=== PATIENT | male | born 1980 | race Caucasian/White ===

== ENCOUNTER 2019-05-20 09:10 | Emergency (ER) | payer MEDICAID, SELFPAY ==
[2019-05-20] VITALS (40 sets, daily range): BP systolic 105–144; BP diastolic 59–86; PULSE 66–90; RESP 11–34; TEMP 37.4; O2SAT 96–100
--- NOTE | 2019-05-20 09:21 | ED.GENADUL_ITS ---
Discharge Plan Disposition Patient Disposition: HOME Discharge Details Chief Complaint: FlankPain Primary Care Provider: None,None ED Provider: Keith Wells Home Meds and New Rx's Prescriptions: New lidocaine 5 % adhesive patch,medicated 1 patch TP DAILY PRN (Reason: pain) Qty: 15 RF: 0 Continued methadone 10 mg/mL Concentrate 60 mg PO DAILY RF: 0 Discharge Data Discharge Date/Time-TO BE ENTERED AT DEPARTURE: 05/20/19 12:50 Medical Decision Making <Keith Wells NP - Last Filed: 05/24/19 08:16> Chief complaint of back pain. Patient states he took some friend's Vyvanse 2 tablets last night and fell asleep on the couch. When he woke up this morning he had back pain. He did state that he may have bit his tongue as it feels slightly swollen. Patient is concerned he may have had a seizure. Patient denies any seizure disorder, states that he is never had a witnessed seizure, denies any headache or neurological symptoms. With further questioning he just thinks that this is why he has back pain but has no specific other reason to think he had a seizure. Patient states he is mainly here for his discomfort of his right flank and back. Physical exam shows no neurological findings, slight ecchymosis to the right lateral aspect of the tongue but no laceration or other abnormalities noted within the oral cavity, cardiac and respiratory exams unremarkable, patient does have what appears to be soft tissue tenderness to the mid thoracic spine on the right posterior ribs. Patient has no other focal findings. Given the patient has no seizure history and that he states he is more looking for a reason why he would have back pain I do not feel that patient had seizure as he states that he just woke up with back pain at his normal time along with him not having any other seizure history. Patient does have soft tissue tenderness and paraspinal tenderness but does seem significant over the ribs so given no known mechanism of injury plan to do radiological imaging but suspect back pain is more secondary to him sleeping on the couch. Plan to do labs and radiological imaging. Pending results patient given Toradol lidocaine patch and IV fluids Review of radiological imaging shows no acute findings, labs reveal nonspecific leukocytosis, elevated anion gap and slightly decreased potassium, urine does show some ketones in the urine and urine drug screen positive for methadone and THC. Patient reassessed and states significant improvement of back discomfort. I feel that patient more likely has musculoskeletal back pain and that he should continue on NSAID therapy, was prescribed lidocaine patches, and recommended to follow-up with primary care provider. After discussion of diagnosis and plan of care patient is no further needs, questions, or concerns and states clear understanding to return to the emergency department for any worsening symptoms. <Jamshid Dao MD - Last Filed: 05/20/19 09:51> ECG Data Attestation: I personally reviewed and interpreted this ECG (s) as follows: Prior ECG tracings: not available for review Interpretation: sinus rhythm, rate of 78, qtc 437 HPI <Keith Wells NP - Last Filed: 05/24/19 08:16> General Mode of arrival: ambulatory . Date/Time Provider Initiated Documentation: 05/20/19 09:11 . Limitations to Documentation: no limitations . Information obtained by: patient . History of Present Illness 38 year old M presents to the emergency department with the chief complaint of Back pain, described as severe, with intensity rated at 9. Quality is described as sharp, and is localized to the back. Patient started experiencing this hour(s) (3) and it has been constant. No relieving factors improve symptom(s), Movement worsens symptoms . Patient did receive the following treatments prior to arrival, none Related Data Home Medications Medication Instructions Recorded Confirmed lidocaine 1 patch TP DAILY PRN #15 each 05/20/19 methadone 60 mg PO DAILY 05/20/19 05/20/19 Previous Rx's Medication Instructions Recorded lidocaine 1 patch TP DAILY PRN #15 each 05/20/19 Allergies Allergy/AdvReac Type Severity Reaction Status Date / Time sertraline [From Zoloft] Allergy Unverified 05/20/19 09:17 General Stated Complaint: FlankPain DEVEN: 3 Review of Systems <Keith Wells NP - Last Filed: 05/24/19 08:16> Constitutional Denies chills, Denies fever(s), Denies headache(s) and Denies weakness Eyes Denies change in vision ENT Denies headache(s), Denies mouth pain and Reports tongue swelling Cardiovascular Denies chest pain, Denies syncope and Denies dyspnea Respiratory Denies cough and Denies dyspnea Musculoskeletal Reports back pain, Denies numbness and Denies tingling Neurologic Denies syncope, Denies headache(s), Denies focal weakness, Denies memory loss, D enies numbness, Denies radicular pain, Denies tingling, Denies paresthesias and Denies weakness Psychiatric Denies memory loss Allergic/Immunologic Reports tongue swelling PFSH <Keith Wells NP - Last Filed: 05/24/19 08:16> Social History Smoking/Tobacco Use Status: Current every day Tobacco Type: cigarettes Alcohol Intake: never Drug use: Daily Substance use type: marijuana Do you feel safe at home: Yes Do you feel safe in your relationship?: Yes Exam <Keith Wells NP - Last Filed: 05/24/19 08:16> Const General: cooperative and disheveled HENMT Head: normal to inspection Ears: hearing grossly normal bilaterally and TM's normal bilaterally General nose exam: external nose normal Face and sinus: normal facial exam and face symmetric Mouth: lip normal, oropharynx normal, moist mucous membranes, no audible dysphonia, no drooling and tongue abnormal (mild to R lateral ) ecchymotic Throat: posterior oropharynx normal, tonsils normal and uvula midline Eyes General: appearance normal, both eyes and all related structures Pupils: PERRL EOM: EOM intact bilaterally Chest Chest: No rash Other: localized rib tenderness with lateral rib compression right posterior ribs Cardio Rate: regular rate Rhythm: regular rhythm Heart Sounds: S1 normal and S2 normal Pulses: dorsalis pedis pulses present Back/Spine/Pelvis Cervical Spine: normal cervical lordosis and cervical ROM normal Thoracic/Lumbar Spine: thoracic and lumbar spine normal to inspection, pain with thoraco-lumbar ROM, paraspinal tenderness, No scoliosis and No lumbar spinal tenderness Skin General skin exam: no rashes or lesions noted Neuro General: alert, awake, oriented x3, gait normal, tone normal, moves all extremities, no meningeal signs, no focal motor deficits, CN's II-XI intact bilaterally, deep tendon reflexes 2+ bilaterally, not confused and not obtunded Cranial Nerves: no nystagmus, hearing normal and able to elevate shoulders bilaterally Motor: muscle tone normal throughout and strength 5/5 throughout Sensory Exam: no sensory deficits noted and normal double simultaneous stimulation Extrem General: normal to inspection Course <Keith Wells, [employer] - Last Filed: 05/24/19 08:16> Vital Signs Temperature 37.4 C 05/20/19 09:13 Pulse 79 05/20/19 09:13 Respiratory Rate 16 05/20/19 09:13 Blood Pressure 144/86 H 05/20/19 09:13 Pulse Oximetry 100 05/20/19 09:13 Temperature 37.4 C 05/20/19 09:13 Temperature Source Temporal Artery Scan 05/20/19 09:13 Pulse 79 05/20/19 09:13 Respiratory Rate 16 05/20/19 09:13 Respiratory Effort Non-Labored 05/20/19 09:15 Blood Pressure 144/86 H 05/20/19 09:13 Blood Pressure Position Sitting 05/20/19 09:13 Pulse Oximetry 100 05/20/19 09:13 Oxygen Delivery Method Room Air 05/20/19 09:13 Oxygen Flow Rate 0 05/20/19 09:13 Pain Level 10 05/20/19 09:13
--- NOTE | 2019-05-20 09:53 | W.ED.GENAD ---
Discharge Plan Disposition Patient Disposition: HOME Discharge Details Chief Complaint: FlankPain Primary Care Provider: None,None ED Provider: Keith Wells Home Meds and New Rx's Prescriptions: New lidocaine 5 % adhesive patch,medicated 1 patch TP DAILY PRN (Reason: pain) Qty: 15 RF: 0 Continued methadone 10 mg/mL Concentrate 60 mg PO DAILY RF: 0 Discharge Data Discharge Date/Time-TO BE ENTERED AT DEPARTURE: 05/20/19 12:50 HPI General Mode of arrival: ambulatory. Date/Time Provider Initiated Documentation: 05/20/19 09:11. Limitations to Documentation: no limitations. Information obtained by: patient and RN notes reviewed. History of Present Illness 38 year old M presents to the emergency department with the chief complaint of back pain, described as severe, with intensity rated at 10. Quality is described as aching and sharp, and is localized to the back and right. Patient started experiencing this hour(s) (8) and it has been constant. No relieving factors improve symptom(s), Patient notes no other symptoms.. Patient did receive the following treatments prior to arrival, none Related Data Home Medications Medication Instructions Recorded Confirmed lidocaine 1 patch TP DAILY PRN #15 each 05/20/19 methadone 60 mg PO DAILY 05/20/19 05/20/19 Previous Rx's Medication Instructions Recorded lidocaine 1 patch TP DAILY PRN #15 each 05/20/19 Allergies Allergy/AdvReac Type Severity Reaction Status Date / Time sertraline [From Zoloft] Allergy Unverified 05/20/19 09:17 General Stated Complaint: FlankPain EDVEN: 3 Review of Systems Review of Systems All systems reviewed & are unremarkable except as noted in HPI and below Constitutional Denies headache(s) Eyes Reports as per HPI and Reports system reviewed and no additional complaints, except as docu ENT Reports system reviewed and no additional complaints, except as docu, Denies headache(s) and Denies mouth pain Comments: tongue swelling Cardiovascular Reports system reviewed and no additional complaints, except as docu Respiratory Reports system reviewed and no additional complaints, except as docu Musculoskeletal Reports system reviewed and no additional complaints, except as docu, Reports abnormal gait (due to discomfort), Reports back pain (R sided thoracic), Denies deformity, Reports limited range of motion (due to discomfort), Denies muscle weakness, Denies numbness, Denies radiating pain into limb and Denies tingling Neurologic Reports system reviewed and no additional complaints, except as docu, Denies abnormal speech, Reports abnormal gait (due to discomfort), Denies headache(s), Denies numbness and Denies tingling [facility] Social History Smoking/Tobacco Use Status: Current every day Tobacco Type: cigarettes Alcohol Intake: never Drug use: Daily Substance use type: marijuana Do you feel safe at home: Yes Do you feel safe in your relationship?: Yes Exam Const General: cooperative, no acute distress and disheveled HENMT Head: normal to inspection Ears: hearing grossly normal bilaterally, external ears normal and TM's normal bilaterally General nose exam: external nose normal Face and sinus: normal facial exam and face symmetric Mouth: oral mucosae normal, lip normal, oropharynx normal, moist mucous membranes and tongue abnormal (mild to L lateral edge) ecchymotic Throat: posterior oropharynx normal, tonsils normal and uvula midline Eyes General: appearance normal, both eyes and all related structures Eyelids: eyelids normal Pupils: PERRL EOM: EOM intact bilaterally Resp Effort & Inspection: normal respiratory effort and able to speak in complete sentences Cardio Rate: regular rate Rhythm: regular rhythm Heart Sounds: S1 normal and S2 normal Pulses: dorsalis pedis pulses present Back/Spine/Pelvis Cervical Spine: normal cervical lordosis and cervical ROM normal Thoracic/Lumbar Spine: thoracic and lumbar spine normal to inspection Other: Lateral rib compression elicited R posterior thoracic rib pain Skin General skin exam: no rashes or lesions noted Trauma: no lacerations or abrasions Neuro General: deep tendon reflexes 2+ bilaterally Cranial Nerves: PERRL, EOM intact bilaterally, no nystagmus, hearing normal and able to elevate shoulders bilaterally Cognition: normal cognition Speech: speech normal Motor: muscle tone normal throughout and strength 5/5 throughout Sensory Exam: no sensory deficits noted and normal double simultaneous stimulation Course Vital Signs Pulse 75 05/20/19 09:06 Respiratory Rate 22 05/20/19 09:06 Blood Pressure 144/86 H 05/20/19 09:06 Pulse Oximetry 100 05/20/19 09:06 Temperature 37.4 C 05/20/19 09:13 Temperature Source Temporal Artery Scan 05/20/19 09:13 Pulse 78 05/20/19 09:34 Pulse 75 05/20/19 09:34 Respiratory Rate 14 05/20/19 09:34 Respiratory Effort Non-Labored 05/20/19 09:15 Blood Pressure 111/75 05/20/19 09:34 Blood Pressure Mean 84 05/20/19 09:34 Blood Pressure Position Sitting 05/20/19 09:13 Pulse Oximetry 99 05/20/19 09:34 Oxygen Delivery Method Room Air 05/20/19 09:13 Oxygen Flow Rate 0 05/20/19 09:13 Pain Level 10 05/20/19 09:32
[2019-05-20] MEDS: Ketorolac 30 MG/ML VIAL IVP (09:59)
[2019-05-20] MEDS: Lidocaine 5% Patch 1 PATCH TP (10:00)
--- NOTE | 2019-05-20 10:02 | ED.GENADUL_ITS ---
Discharge Plan Disposition Patient Disposition: HOME Discharge Details Chief Complaint: FlankPain Primary Care Provider: None,None ED Provider: Keith Wells Home Meds and New Rx's Prescriptions: New lidocaine 5 % adhesive patch,medicated 1 patch TP DAILY PRN (Reason: pain) Qty: 15 RF: 0 Continued methadone 10 mg/mL Concentrate 60 mg PO DAILY RF: 0 Discharge Data Discharge Date/Time-TO BE ENTERED AT DEPARTURE: 05/20/19 12:50 HPI General Mode of arrival: ambulatory . Date/Time Provider Initiated Documentation: 05/20/19 09:11 . Limitations to Documentation: no limitations . Information obtained by: patient and RN notes reviewed . History of Present Illness 38 year old M presents to the emergency department with the chief complaint of back pain, described as severe, with intensity rated at 10. Quality is described as aching and sharp, and is localized to the back and right. Patient started experiencing this hour(s) (8) and it has been constant. No relieving factors improve symptom(s), Patient notes no other symptoms.. Patient did receive the following treatments prior to arrival, none Related Data Home Medications Medication Instructions Recorded Confirmed lidocaine 1 patch TP DAILY PRN #15 each 05/20/19 methadone 60 mg PO DAILY 05/20/19 05/20/19 Previous Rx's Medication Instructions Recorded lidocaine 1 patch TP DAILY PRN #15 each 05/20/19 Allergies Allergy/AdvReac Type Severity Reaction Status Date / Time sertraline [From Zoloft] Allergy Unverified 05/20/19 09:17 General Stated Complaint: FlankPain DEVEN: 3 Review of Systems Review of Systems All systems reviewed & are unremarkable except as noted in HPI and below Constitutional Denies headache(s) Eyes Reports as per HPI and Reports system reviewed and no additional complaints, except as docu ENT Reports system reviewed and no additional complaints, except as docu, Denies headache(s) and Denies mouth pain Comments: tongue swelling Cardiovascular Reports system reviewed and no additional complaints, except as docu Respiratory Reports system reviewed and no additional complaints, except as docu Musculoskeletal Reports system reviewed and no additional complaints, except as docu, Reports abnormal gait (due to discomfort), Reports back pain (R sided thoracic), Denies deformity, Reports limited range of motion (due to discomfort), Denies muscle weakness, Denies numbness, Denies radiating pain into limb and Denies tingling Neurologic Reports system reviewed and no additional complaints, except as docu, Denies abnormal speech, Reports abnormal gait (due to discomfort), Denies headache(s), Denies numbness and Denies tingling [facility] Social History Smoking/Tobacco Use Status: Current every day Tobacco Type: cigarettes Alcohol Intake: never Drug use: Daily Substance use type: marijuana Do you feel safe at home: Yes Do you feel safe in your relationship?: Yes Exam Const General: cooperative, no acute distress and disheveled HENMT Head: normal to inspection Ears: hearing grossly normal bilaterally, external ears normal and TM's normal bilaterally General nose exam: external nose normal Face and sinus: normal facial exam and face symmetric Mouth: oral mucosae normal, lip normal, oropharynx normal, moist mucous membranes and tongue abnormal (mild to L lateral edge) ecchymotic Throat: posterior oropharynx normal, tonsils normal and uvula midline Eyes General: appearance normal, both eyes and all related structures Eyelids: eyelids normal Pupils: PERRL EOM: EOM intact bilaterally Resp Effort & Inspection: normal respiratory effort and able to speak in complete sentences Cardio Rate: regular rate Rhythm: regular rhythm Heart Sounds: S1 normal and S2 normal Pulses: dorsalis pedis pulses present Back/Spine/Pelvis Cervical Spine: normal cervical lordosis and cervical ROM normal Thoracic/Lumbar Spine: thoracic and lumbar spine normal to inspection Other: Lateral rib compression elicited R posterior thoracic rib pain Skin General skin exam: no rashes or lesions noted Trauma: no lacerations or abrasions Neuro General: deep tendon reflexes 2+ bilaterally Cranial Nerves: PERRL, EOM intact bilaterally, no nystagmus, hearing normal and able to elevate shoulders bilaterally Cognition: normal cognition Speech: speech normal Motor: muscle tone normal throughout and strength 5/5 throughout Sensory Exam: no sensory deficits noted and normal double simultaneous stimulation Course Vital Signs Pulse 75 05/20/19 09:06 Respiratory Rate 22 05/20/19 09:06 Blood Pressure 144/86 H 05/20/19 09:06 Pulse Oximetry 100 05/20/19 09:06 Temperature 37.4 C 05/20/19 09:13 Temperature Source Temporal Artery Scan 05/20/19 09:13 Pulse 78 05/20/19 09:34 Pulse 75 05/20/19 09:34 Respiratory Rate 14 05/20/19 09:34 Respiratory Effort Non-Labored 05/20/19 09:15 Blood Pressure 111/75 05/20/19 09:34 Blood Pressure Mean 84 05/20/19 09:34 Blood Pressure Position Sitting 05/20/19 09:13 Pulse Oximetry 99 05/20/19 09:34 Oxygen Delivery Method Room Air 05/20/19 09:13 Oxygen Flow Rate 0 05/20/19 09:13 Pain Level 10 05/20/19 09:32
[2019-05-20 10:12] LABS: Absolute Basophil Count 0.04 k/cumm (0.0-0.2); Absolute Eosinophil Count 0.03 k/cumm (0.0-0.7); Absolute Lymphocyte Count 1.25 k/cumm (1.2-3.4); Absolute Monocyte Count 0.98 k/cumm (0.11-0.7); Absolute Neutrophil Count 12.43 k/cumm (1.2-6.7); Basophils % 0.3; Eosinophils % 0.2; HCT 46.9 % (40.0-50.0); Immature Grans % 0.7; Lymphocytes % 8.4; Mean Corp. HGB Concentration 34.1 g/dL (32.0-36.0); Mean Corpuscular Hemoglobin 27.2 pg (27.0-33.0); Mean Corpuscular Volume 79.6 fL (80-95); Mean Platelet Volume 10.5 fL (8.0-11.0); Monocytes % 6.6; Neutrophils % 83.8; Platelet Count 336 x1000/uL (130-400); RBC 5.89 m/cumm (4.50-6.00); White Blood Cell Count 14.83 k/cumm (4.4-10.8)
--- NOTE | 2019-05-20 10:25 | DI.RAD_ITS ---
SYMPTOM/DIAGNOSIS: RIGHT POSTERIOR RIB PAIN PA AND LATERAL CHEST: There are no prior comparison exams. The cardiac and mediastinal contours have a normal appearance. The lungs are well inflated and clear. No pneumothorax, infiltrate or effusion is seen. There is mild anterior wedging of the mid thoracic vertebral bodies IMPRESSION: Mild thoracic compression fractures, likely old RIGHT RIBS: No fracture or pneumothorax is seen. The shoulder and humerus are unremarkable as visualized. IMPRESSION: Negative right ribs.
[2019-05-20 10:26] LABS: ALT 41 U/L (12-78); AST 28 U/L (15-37); Albumin 4.4 g/dL (3.4-5.0); Alkaline Phosphatase 94 U/L (46-116); Anion Gap 14.3 mmol/L (3-11); BUN 17 mg/dL (7-18); Bilirubin, Total 0.5 mg/dL (0.2-1.0); CO2 26.7 mmol/L (21.0-32.0); Calcium 9.2 mg/dL (8.5-10.1); Chloride 101 mmol/L (98-107); Glucose 96 mg/dL (70-100); Potassium 3.3 mmol/L (3.5-5.1); Sodium 142 mmol/L (136-145)
[2019-05-20 10:32] LABS: *AMPHETAMINES SCREEN URINE Negative (Negative); *BARBITURATES SCREEN URINE Negative (Negative); *BENZODIAZEPINES SCREEN URINE Negative (Negative); Cannabinoids THC POSITIVE (Negative); Cocaine Screen,Urine Negative (Negative); METHADONE URINE SCREEN POSITIVE (Negative); OPIATES URINE SCREEN Negative (Negative); Tricyclic Antidepressants Negative (Negative)
[2019-05-20 10:33] LABS: Bilirubin Negative (Negative); Blood Negative (Negative); Clarity Cloudy; Glucose Negative (Negative); Ketones 40 mg/dL (Negative); Leukocyte Esterase Negative (Negative); Nitrite Negative (Negative); Specific Gravity 1.025 (1.005-1.025); Urobilinogen 0.2 EU/dL (Up TO 0.2)
[2019-05-20] MEDS: Normal Saline 1,000 ML 1000 ML IV (10:47)
--- NOTE | 2019-05-20 11:59 | DI.VRAD_ITS ---
EXAM: XR Right Ribs EXAM DATE/TIME: 05/20/2019 9:52 AM CLINICAL HISTORY: 38 years old, male; Chest wall pain; Patient HX: Right sided posterior rib pain since this morning, no known injury. Patient sts woke up in pain. TECHNIQUE: Imaging protocol: XR Right ribs. Views: 2 views. COMPARISON: No relevant prior studies available. FINDINGS: Bones/joints: Normal. There is no evidence of acute fracture. Soft tissues: Normal. IMPRESSION: No acute findings. EXAM: XR Chest, 2 Views EXAM DATE/TIME: 05/20/2019 9:52 AM CLINICAL HISTORY: 38 years old, male; Chest wall pain; Patient HX: Right sided posterior rib pain since this morning, no known injury. Patient sts woke up in pain. TECHNIQUE: Imaging protocol: XR of the chest, 2 views. COMPARISON: No relevant prior studies available. FINDINGS: Lungs: Unremarkable. No consolidation. Pleural space: Unremarkable. No pleural effusion. No pneumothorax. Heart/Mediastinum: Unremarkable. No cardiomegaly. Bones/joints: Unremarkable. IMPRESSION: No acute findings. Dictated and Authenticated by: Meghann Dao MD. Ordering:NEIL Parker MD
== END 2019-05-20 12:50 | disposition home or self-care (01) ==
PROVIDERS: Emergency Provider Nurse Practitioner Family
DX: M54.9 Dorsalgia, unspecified (principal); R07.89 Other chest pain; S00.532A Contusion of oral cavity, initial encounter; X58.XXXA Exposure to other specified factors, initial encounter
CPT/HCPCS: 36415; 80053; 80307; 93005; 96361; 96374; 99285; 71046; 71100; 81003; 85025; 93010; J1885